=== PATIENT | male | born 1935 | race Caucasian/White ===

== ENCOUNTER → 2018-11-23 | Outpatient (CLI) | payer MEDICARE ==
[~2018-11-23] VITALS: Ht 170.2 cm; Wt 80.7 kg
[~2018-11-23] MED LIST: CITRATE OF MAG296 ML PO; DICLOFENAC SODI25 MG PO; FISH OIL 1,001000 M2 PO; LEVITRA20 MG PO; MIRALAX17 GM PO; NORCO 5-325 TA1 EACH PO; OMEPRAZOLE 20 M20 M1 PO; ONDANSETRON HCL4 M2 PO; PROSCAR 5MG TABL5 MG PO; SIMVASTATIN40 MG PO
[2018-11-23 08:32] VITALS: BP 118/78
== END ==
LOC: M.MRI 07:32
DX: M51.37 Other intervertebral disc degeneration, lumbosacral region (principal); M48.061 Spinal stenosis, lumbar region without neurogenic claudication